=== PATIENT | female | born 1990 | race African-American/Black ===

== ENCOUNTER 2025-05-09 09:26 | Emergency (ER) | payer SELFPAY ==
[~2025-05-09] VITALS: Ht 170.2 cm; Wt 91.0 kg
[2025-05-09 09:32] VITALS: O2SAT 96
[2025-05-09 09:55] LABS: CLARITY URINE CLOUDY (CLEAR); COLOR URINE YELLOW (YELLOW); GLUCOSE URINE NEGATIVE (NEGATIVE); KETONES URINE NEGATIVE (NEGATIVE); LEUKOCYTE ESTERASE URINE NEGATIVE (NEGATIVE); NITRITE URINE NEGATIVE (NEGATIVE); OCCULT BLOOD URINE TRACE (NEGATIVE); PH URINE 5.5 (4.5-8.0); PROTEIN URINE NEGATIVE (NEGATIVE); SPECIFIC GRAVITY URINE 1.020 (1.005-1.030); UROBILINOGEN URINE 0.2 E.U./dL (0.2-1.0)
[2025-05-09 09:58] LABS: BASOPHILS % 0.2 % (0.0-2.0); EOSINOPHILS % 0.4 % (0.0-5.0); HEMATOCRIT. 39.2 % (36.0-48.0); HEMOGLOBIN. 13.5 g/dL (12.0-16.0); LYMPHOCYTES % 23.9 % (20.0-50.0); MEAN PLATELET VOLUME 8.3 fl (7.4-10.4); MONOCYTES % 4.7 % (2.0-8.0); NEUTROPHILS % 70.8 % (40.0-76.0); PLATELET 234 x1000/uL (130-400); RED BLOOD CELL COUNT 4.90 mill/uL (4.2-5.4); RED CELL DISTRIBUTION WIDTH 14.4 % (11.6-14.6)
[2025-05-09 10:12] LABS: CREATININE 0.8 mg/dL (0.6-1.0); UREA NITROGEN BLOOD 13 mg/dL (9-23)
[2025-05-09 10:14] LABS: ASPARTATE AMINOTRANSFERASE 12 IU/L (<34); BILIRUBIN DIRECT 0.2 mg/dL (<=3.0); BILIRUBIN TOTAL 0.8 mg/dL (0.1-1.0); PROTEIN TOTAL 6.7 g/dL (6.0-8.3)
[2025-05-09 10:28] LABS: RBC URINE 0-2 /hpf (0-2); SQUAMOUS EPITHELIAL CELL URINE 2+ /lpf (RARE/1+)
[2025-05-09 10:29] LABS: BACTERIA URINE 1+
[2025-05-09 10:31] LABS: HCG SCREEN NEGATIVE
[2025-05-09] MEDS: ONDANSETRON 4MG ODT PO ONE (10:34)
[2025-05-09] MEDS: CLONIDINE 0.1MG TABLET PO ONE (10:35)
[2025-05-09 10:37] VITALS: BP 116/75; PULSE 71; RESP 18; TEMP 36.8; O2SAT 96
== END 2025-05-09 10:40 | disposition home or self-care (01) ==
LOC: ER 09:26
DX: F11.23 Opioid dependence with withdrawal (principal)
CPT/HCPCS: 99283; 80076; 80048; 81003; 81025; 84703; 83690; 85025; 36415; Q0162